=== PATIENT | female | born 1940 | race Caucasian/White ===

== ENCOUNTER 2018-11-08 09:07 | Emergency (ER) | payer MEDICARE, OTHER ==
[~2018-11-08] VITALS: Ht 167.6 cm; Wt 77.1 kg
[~2018-11-08 09:07] MED LIST: ATOR10TA52 PO; CITA-30 PO; ESTR2TAB3 PO; FLUT100M7 IN; GABA300C10 PO; INSU100I4 SC; LATA0.0020 EACHEYE; LOSA-49 PO; MULT-902 OR; NOR10T PO; SITA100T7 PO; TRIA50TA2 PO
[2018-11-08 10:32] VITALS: BP 140/52
[2018-11-08] MEDS ORDERED: ALBUTEROL SULF 2.5 MG/0.5ML(0.5%) NEB SOLN NEB ONE (11:00)
[2018-11-08] MEDS ORDERED: IPRATROPIUM BROM 0.5 MG/2.5ML INH SOL NEB ONE (11:00)
[2018-11-08] MEDS ORDERED: cefTRIAXone SOD 1,000 MG VL IM ONE (11:15)
[2018-11-08] MEDS ORDERED: LIDOCAINE 1% HCL (LOCAL ANESTH.) INJ 20ML MDV ONE (11:20)
[2018-11-08] MEDS ORDERED: LIDOCAINE 1% HCL (LOCAL ANESTH.) INJ 20ML MDV IJ ONE (11:30)
== END 2018-11-08 11:48 | disposition home or self-care (01) ==
LOC: ER 09:07
DX: H66.93 Otitis media, unspecified, bilateral (principal); J20.9 Acute bronchitis, unspecified; J02.9 Acute pharyngitis, unspecified; F17.210 Nicotine dependence, cigarettes, uncomplicated; E11.9 Type 2 diabetes mellitus without complications; E78.5 Hyperlipidemia, unspecified; I10 Essential (primary) hypertension; Z90.710 Acquired absence of both cervix and uterus
CPT/HCPCS: 71046; 94640; 96372; 99283; J0696; J2001; J7611; J7644

== ENCOUNTER 2019-05-14 09:09 | Emergency (ER) | payer MEDICARE, OTHER ==
[~2019-05-14] VITALS: Ht 165.1 cm; Wt 72.6 kg
[~2019-05-14 09:09] MED LIST changes: +LOSA-39 PO; -LOSA-49 PO
[2019-05-14 09:52] LABS: Basophils % (auto) 0.9 % (0.0-2.0); Eosinophils # (auto) 0.1 uL; Hematocrit 41.2 % (36.0-46.0); Hemoglobin 13.9 g/dL (12.2-16.2); Mean Corpuscular Volume 103.5 fL (80.0-100.0); Red Cell Distribution Width 12.8 % (11.8-14.3)
[2019-05-14 09:54] LABS: Basophils # (auto) 0 uL; Eosinophils % (auto) 2.5 % (0.0-7.0); Lymphocytes # (auto) 1.5 uL; Lymphocytes % (auto) 25.6 % (10.0-50.0); Mean Corpuscular Hgb Conc. 33.8 g/dL (32.0-36.0); Monocytes # (auto) 0.5 uL; Monocytes % (auto) 8.4 % (0.0-12.0); Neutrophils # (auto) 3.6 uL; Neutrophils % (auto) 62.6 % (37.0-80.0); Platelet Count (auto) 239 10^3/uL (140-450); Red Blood Cells 3.97 10^6/uL (4.0-5.20); White Blood Cell 5.7 10^3/uL (4.4-10.8)
[2019-05-14 10:16] LABS: Albumin 3.8 g/dL (3.4-5.0); Anion Gap 7 (5-15); Blood Urea Nitrogen 9 mg/dL (7-18); Calcium 8.7 mg/dL (8.5-10.1); Carbon Dioxide 27 mmol/L (21-32); Chloride 106 mmol/L (98-107); Glucose 138 mg/dL (74-106); Magnesium 1.9 mg/dL (1.6-2.6); Potassium 4.1 mmol/L (3.5-5.1); Sodium 140 mmol/L (136-145)
[2019-05-14 10:22] LABS: Alanine Aminotransferase 42 U/L (13-56); Alkaline Phosphatase 48 U/L (45-117); Aspartate Aminotransferase 34 U/L (15-37); BUN/Creatinine Ratio 12.5; Bilirubin, Total 0.6 mg/dL (0.2-1.0); GFR African American 101 mL/min; GFR Non-African American 84 mL/min
[2019-05-14 10:40] LABS: INR 1.03 (0.9-1.15); Partial Thromboplastin Time 25.4 sec (23.64-32.05)
[2019-05-14 11:03] LABS: Urine Bacteria FEW /hpf (None Seen); Urine Blood Negative /uL (Negative); Urine Specific Gravity 1.019 (1.001-1.035); Urine WBC 47 /hpf (0 - 5)
[2019-05-14] MEDS ORDERED: cefTRIAXone SOD 1,000 MG VL IM ONE (12:30)
[2019-05-14] MEDS ORDERED: MECLIZINE HCL 25 MG TAB PO ONE (12:30)
[2019-05-14] MEDS ORDERED: LIDOCAINE 2% (LOCAL ANESTH.) PF 5ml SDV ONE (13:10)
[2019-05-14 13:21] VITALS: BP 142/56
== END 2019-05-14 13:22 | disposition home or self-care (01) ==
LOC: ER 09:11
DX: R42 Dizziness and giddiness (principal); N39.0 Urinary tract infection, site not specified; M19.90 Unspecified osteoarthritis, unspecified site; I25.10 Atherosclerotic heart disease of native coronary artery without angina pectoris; E11.9 Type 2 diabetes mellitus without complications; E78.5 Hyperlipidemia, unspecified; I10 Essential (primary) hypertension; Z90.710 Acquired absence of both cervix and uterus; Z79.899 Other long term (current) drug therapy
CPT/HCPCS: 36415; 70450; 71045; 80053; 81001; 83735; 83880; 84484; 85025; 85610; 85730; 93005; 94761; 96372; 99284; J0696; J2001; J8597

== ENCOUNTER 2021-08-25 10:48 | Inpatient (IN) | payer MEDICARE, OTHER ==
[~2021-08-25] VITALS: Ht 167.6 cm; Wt 65.4 kg
[~2021-08-25 10:48] MED LIST changes: -CITA-30 PO; +CITA20TA9 PO
[2021-08-25] MEDS ORDERED: methylPREDNISolone SOD SUCC 125 MG/2 ML VL IV ONE (11:15)
[2021-08-25] MEDS ORDERED: ZINC SULFATE 220mg CAP or TAB PO ONE (11:30)
[2021-08-25] MEDS ORDERED: CHOLECALCIFEROL (VITD3) 2,000 UNIT CAP/TAB PO ONE (11:30)
[2021-08-25] MEDS ORDERED: ASCORBIC ACID 500 MG TAB PO ONE (11:30)
[2021-08-25] MEDS ORDERED: AZITHROMYCIN 500MG/ 250ML 250 ML IV ONE (11:30)
[2021-08-25 11:52] LABS: Basophils # (auto) 0.1 10 ^3/uL (0-0.2); Eosinophils # (auto) 0 10 ^3/uL (0-0.8); Hemoglobin 14.8 g/dL (12.2-16.2); Lymphocytes # (auto) 1.1 10 ^3/uL (0.4-5.4); Monocytes # (auto) 0.9 10 ^3/uL (0-1.3); White Blood Cell 9.1 10^3/uL (4.4-10.8)
[2021-08-25 11:56] LABS: Basophils % (auto) 0.9 % (0.0-2.0); Eosinophils % (auto) 0.5 % (0.0-7.0); Hematocrit 42.5 % (36.0-46.0); Mean Corpuscular Hemoglobin 34.9 pg (28.0-32.0); Mean Corpuscular Hgb Conc. 34.8 g/dL (32.0-36.0); Mean Corpuscular Volume 100.5 fL (80.0-100.0); Neutrophils # (auto) 6.9 10 ^3/uL (1.6-8.6); Neutrophils % (auto) 76.6 % (37.0-80.0); Nucleated Red Blood Cells % 0.1 %; Red Blood Cells 4.23 10^6/uL (4.0-5.20); Red Cell Distribution Width 12.4 % (11.8-14.3)
[2021-08-25] MEDS ORDERED: MORPHINE SULFATE 4 MG/ML SYR/VIAL IV ONE (12:00)
[2021-08-25] MEDS ORDERED: ONDANSETRON HCL 4 MG/2 ML VIAL IV ONE (12:00)
[2021-08-25 12:18] LABS: Albumin 3.2 g/dL (3.4-5.0); Calcium 11.2 mg/dL (8.5-10.1); Potassium 4.2 mmol/L (3.5-5.1)
[2021-08-25 12:28] LABS: BUN/Creatinine Ratio 18.2; Bilirubin, Total 1.3 mg/dL (0.2-1.0); CRP High Sensitivity 13.1 mg/dL (< 0.3); Total Protein 7.9 g/dL (6.4-8.2)
[2021-08-25 12:45] LABS: Lactic Acid w/Reflex 3.4 mmol/L (0.4-2.0)
[2021-08-25] MEDS ORDERED: MORPHINE SULFATE INJECTION 2 MG/ML SYRG IV PRN ×2 (14:00→16:45)
[2021-08-25] MEDS ORDERED: NITROGLYCERIN 0.4 MG SL TAB SL PRN ×2 (14:00→16:45)
[2021-08-25] MEDS ORDERED: ALBUTEROL SULF 2.5 MG/0.5ML(0.5%) NEB SOLN NEB ONE (16:00)
[2021-08-25] MEDS ORDERED: IPRATROPIUM BROM 0.5 MG/2.5ML INH SOL NEB ONE (16:00)
[2021-08-25] MEDS ORDERED: BUDESONIDE (INHALATION) 0.5 MG/2 ML NEB NEB ONE (16:00)
[2021-08-25] MEDS ORDERED: DEXTROSE (50%) 50ML SYRG IV PRN (16:00)
[2021-08-25] MEDS ORDERED: CLINDAMYCIN 600MG IV 50 ML IV ONE (16:00)
[2021-08-25] MEDS ORDERED: levoFLOXacin 500MG 100 ML IV ONE (16:00)
[2021-08-25] MEDS ORDERED: ENOXAPARIN SOD 80 MG/0.8ML SYRINGE SC ONE (16:00)
[2021-08-25] MEDS ORDERED: NIFEdipine ER 30 MG TAB PO ONE (16:45)
[2021-08-25] MEDS ORDERED: hydrALAZINE HCL 20 MG/ML VL IV PRN (16:45)
[2021-08-25] MEDS ORDERED: DOCUSATE SOD 100 MG CAP PO PRN (16:45)
[2021-08-25] MEDS ORDERED: ACETAMINOPHEN 325 MG TAB PO PRN (16:45)
[2021-08-25] MEDS ORDERED: ALUM & MAG HYDROX-SIMETH LIQ(MAALOX) 30 ML PO PRN (16:45)
[2021-08-25] MEDS ORDERED: HYDROcodone-ACET 5/325MG TAB PO PRN (16:45)
[2021-08-25] MEDS ORDERED: LORazepam 0.5 MG TAB PO PRN (16:45)
[2021-08-25 17:12] LABS: Urine Bacteria FEW /hpf (None Seen); Urine Blood Negative /uL (Negative); Urine Mucus FEW (None Seen); Urine WBC 9 /hpf (0 - 5)
[2021-08-25 17:25] LABS: Amphetamine Screen, Urine NEGATIVE (NEGATIVE); Barbiturate Scree,Urine NEGATIVE (NEGATIVE); Benzodiazephine Screen, Urine NEGATIVE (NEGATIVE); Cannabinoid Screen, Urine NEGATIVE (NEGATIVE); Cocaine Screen, Urine NEGATIVE (NEGATIVE); Opiate Scree,Urine POSITIVE (NEGATIVE); Phencyclidine Screen, Urine NEGATIVE (NEGATIVE)
[2021-08-25] MEDS ORDERED: LATANOPROST 0.005 % OPTH(EYE) SOL 2.5ML EACHEYE SCH (18:00)
[2021-08-25 18:12] LABS: Magnesium 1.7 mg/dL (1.6-2.6); Phosphorus 4.2 mg/dL (2.5-4.90)
[2021-08-25] MEDS: ALBUTEROL SULF 2.5 MG/0.5ML(0.5%) NEB SOLN NEB PRN ×2 (19:21→22:32)
[2021-08-25] MEDS: BUDESONIDE (INHALATION) 0.5 MG/2 ML NEB NEB SCH (19:21)
[2021-08-25] MEDS: IPRATROPIUM BROM 0.5 MG/2.5ML INH SOL NEB SCH ×3 (19:21→22:32)
[2021-08-25 19:48] LABS: Folate (Folic Acid) > 24.00 ng/mL (5.38-24)
[2021-08-25] MEDS: MORPHINE SULFATE INJECTION 2 MG/ML SYRG IV PRN (21:22)
[2021-08-25] MEDS: METOCLOPRAMIDE HCL 5MG/ml INJ 2ml VIAL IV PRN (21:22)
[2021-08-25] MEDS: ACCU-CHEK COMFORT CURVE STRIP VI SCH (21:32)
[2021-08-25] MEDS: InsuLIN REG 1unit/0.01ml Soln (100units/ml) SC SCH (21:41)
[2021-08-25] MEDS: LATANOPROST 0.005 % OPTH(EYE) SOL 2.5ML EACHEYE SCH ×2 (22:00→23:58)
[2021-08-25] MEDS: SODIUM CHLORIDE 0.9% 1,000 ML IV SCH (22:28)
[2021-08-25] MEDS: ATORVASTATIN 20 MG TAB PO SCH (22:28)
[2021-08-25] MEDS: GABAPENTIN 300 MG CAP PO SCH (22:28)
[2021-08-25] MEDS: CITALOPRAM HYDROBR 20 MG TAB PO SCH (22:28)
[2021-08-25] MEDS: MULTIPLE VITAMINS W/ MINERALS TAB PO SCH (22:28)
[2021-08-25] MEDS: methylPREDNISolone SOD SUCC 40 MG/ML VL IV SCH (22:33)
[2021-08-25] MEDS: ENOXAPARIN SOD 40 MG/0.4 ML SYRINGE SC SCH (22:35)
[2021-08-25] MEDS: CLINDAMYCIN 600MG IV 50 ML IV SCH (22:38)
[2021-08-26] MEDS: InsuLIN REG 1unit/0.01ml Soln (100units/ml) SC SCH ×4 (00:24→17:42)
[2021-08-26] MEDS: ACCU-CHEK COMFORT CURVE STRIP VI SCH ×4 (00:33→17:40)
[2021-08-26] MEDS: CLINDAMYCIN 600MG IV 50 ML IV SCH ×3 (02:28→17:44)
[2021-08-26] MEDS: IPRATROPIUM BROM 0.5 MG/2.5ML INH SOL NEB SCH ×6 (02:46→22:03)
[2021-08-26] MEDS: ALBUTEROL SULF 2.5 MG/0.5ML(0.5%) NEB SOLN NEB PRN ×3 (02:46→22:04)
[2021-08-26] MEDS: GABAPENTIN 300 MG CAP PO SCH ×3 (05:16→21:42)
[2021-08-26] MEDS: methylPREDNISolone SOD SUCC 40 MG/ML VL IV SCH ×3 (06:11→21:42)
[2021-08-26] MEDS: BUDESONIDE (INHALATION) 0.5 MG/2 ML NEB NEB SCH ×2 (06:49→18:51)
[2021-08-26 07:32] LABS: Basophils # (auto) 0 10 ^3/uL (0-0.2); Basophils % (auto) 0.5 % (0.0-2.0); Eosinophils # (auto) 0 10 ^3/uL (0-0.8); Hematocrit 39.7 % (36.0-46.0); Hemoglobin 13.7 g/dL (12.2-16.2); Lymphocytes # (auto) 0.7 10 ^3/uL (0.4-5.4); Lymphocytes % (auto) 7.2 % (10.0-50.0); Mean Corpuscular Hemoglobin 34.6 pg (28.0-32.0); Mean Corpuscular Hgb Conc. 34.5 g/dL (32.0-36.0); Mean Corpuscular Volume 100.3 fL (80.0-100.0); Monocytes # (auto) 0.7 10 ^3/uL (0-1.3); Monocytes % (auto) 6.8 % (0.0-12.0); Neutrophils # (auto) 8.8 10 ^3/uL (1.6-8.6); Neutrophils % (auto) 85.5 % (37.0-80.0); Red Blood Cells 3.96 10^6/uL (4.0-5.20); Red Cell Distribution Width 12.4 % (11.8-14.3); White Blood Cell 10.2 10^3/uL (4.4-10.8)
[2021-08-26 07:34] LABS: Albumin 3.3 g/dL (3.4-5.0); Calcium 10.9 mg/dL (8.5-10.1); Magnesium 2.7 mg/dL (1.6-2.6); Potassium 4.4 mmol/L (3.5-5.1)
[2021-08-26 07:41] LABS: Bilirubin, Total 1.1 mg/dL (0.2-1.0); INR 1.34 (0.9-1.15); Partial Thromboplastin Time 29.1 sec (23.6-33.0); Phosphorus 4.2 mg/dL (2.5-4.90); Total Protein 7.7 g/dL (6.4-8.2); Uric Acid 7.7 mg/dL (2.6-6.0)
[2021-08-26] MEDS: MORPHINE SULFATE INJECTION 2 MG/ML SYRG IV PRN ×2 (08:01→14:23)
[2021-08-26] MEDS: METOCLOPRAMIDE HCL 5MG/ml INJ 2ml VIAL IV PRN ×2 (08:01→14:33)
[2021-08-26] MEDS ORDERED: INSLANTI SC (11:18)
[2021-08-26] MEDS ORDERED: ESTR1TAB6 PO (11:18)
[2021-08-26] MEDS ORDERED: ROPI3TAB4 PO (11:18)
[2021-08-26] MEDS ORDERED: AMLO-489 PO (11:18)
[2021-08-26] MEDS ORDERED: ALBU108A14 IN (11:18)
[2021-08-26] MEDS ORDERED: ATOR20TA50 PO (11:18)
[2021-08-26] MEDS ORDERED: INSU100I4 SC (11:18)
[2021-08-26] MEDS ORDERED: HYDR-3682 PO (11:18)
[2021-08-26] MEDS ORDERED: HYDR25TA5 PO (11:18)
[2021-08-26] MEDS: SODIUM CHLORIDE 0.9% 1,000 ML IV SCH (11:44)
[2021-08-26] MEDS: ASPirin 81 mg TAB PO SCH (11:46)
[2021-08-26] MEDS: MULTIPLE VITAMINS W/ MINERALS TAB PO SCH ×2 (11:46→21:41)
[2021-08-26] MEDS: ENOXAPARIN SOD 40 MG/0.4 ML SYRINGE SC SCH ×2 (11:46→21:42)
[2021-08-26] MEDS: LOSARTAN POTASSIUM 50 MG TAB PO SCH (11:48)
[2021-08-26] MEDS: NIFEdipine ER 30 MG TAB PO SCH (11:48)
[2021-08-26] MEDS: levoFLOXacin 500MG 100 ML IV SCH (13:41)
[2021-08-26 18:14] VITALS: BP 127/68
[2021-08-26] MEDS: ATORVASTATIN 20 MG TAB PO SCH (21:41)
[2021-08-26] MEDS: CITALOPRAM HYDROBR 20 MG TAB PO SCH (21:42)
[2021-08-26] MEDS: LATANOPROST 0.005 % OPTH(EYE) SOL 2.5ML EACHEYE SCH (21:47)
[2021-08-26 22:00] VITALS: BP 122/59
[2021-08-27] MEDS: ACCU-CHEK COMFORT CURVE STRIP VI SCH ×5 (00:15→23:54)
[2021-08-27] MEDS: InsuLIN REG 1unit/0.01ml Soln (100units/ml) SC SCH ×4 (00:17→18:24)
[2021-08-27] MEDS: IPRATROPIUM BROM 0.5 MG/2.5ML INH SOL NEB SCH ×6 (02:00→22:00)
[2021-08-27] MEDS: CLINDAMYCIN 600MG IV 50 ML IV SCH ×3 (02:00→18:23)
[2021-08-27 05:00] VITALS: BP 102/41
[2021-08-27] MEDS: methylPREDNISolone SOD SUCC 40 MG/ML VL IV SCH ×3 (06:26→22:33)
[2021-08-27] MEDS: GABAPENTIN 300 MG CAP PO SCH ×3 (06:26→22:32)
[2021-08-27] MEDS: METOCLOPRAMIDE HCL 5MG/ml INJ 2ml VIAL IV PRN ×2 (08:20→16:04)
[2021-08-27 09:00] VITALS: BP 102/59
[2021-08-27] MEDS: MULTIPLE VITAMINS W/ MINERALS TAB PO SCH ×2 (09:17→22:32)
[2021-08-27] MEDS: ASPirin 81 mg TAB PO SCH (09:17)
[2021-08-27] MEDS: ENOXAPARIN SOD 40 MG/0.4 ML SYRINGE SC SCH ×2 (09:17→22:00)
[2021-08-27] MEDS: NIFEdipine ER 30 MG TAB PO SCH (09:19)
[2021-08-27] MEDS: LOSARTAN POTASSIUM 50 MG TAB PO SCH (09:26)
[2021-08-27] MEDS: BUDESONIDE (INHALATION) 0.5 MG/2 ML NEB NEB SCH ×2 (10:25→18:45)
[2021-08-27] MEDS: levoFLOXacin 500MG 100 ML IV SCH (11:40)
[2021-08-27 13:00] VITALS: BP 111/67
[2021-08-27] MEDS: MORPHINE SULFATE INJECTION 2 MG/ML SYRG IV PRN ×2 (14:42→21:18)
[2021-08-27 17:00] VITALS: BP 127/75
[2021-08-27] MEDS: ALBUTEROL SULF 2.5 MG/0.5ML(0.5%) NEB SOLN NEB PRN (18:45)
[2021-08-27 22:00] VITALS: BP 131/66
[2021-08-27] MEDS: ATORVASTATIN 20 MG TAB PO SCH (22:31)
[2021-08-27] MEDS: CITALOPRAM HYDROBR 20 MG TAB PO SCH (22:31)
[2021-08-27] MEDS: LATANOPROST 0.005 % OPTH(EYE) SOL 2.5ML EACHEYE SCH (22:35)
[2021-08-28] MEDS: InsuLIN REG 1unit/0.01ml Soln (100units/ml) SC SCH ×4 (00:02→18:32)
[2021-08-28] MEDS: METOCLOPRAMIDE HCL 5MG/ml INJ 2ml VIAL IV PRN (00:20)
[2021-08-28] MEDS: CLINDAMYCIN 600MG IV 50 ML IV SCH ×3 (01:35→18:22)
[2021-08-28] MEDS: IPRATROPIUM BROM 0.5 MG/2.5ML INH SOL NEB SCH ×4 (02:00→14:31)
[2021-08-28 05:12] VITALS: BP 117/54
[2021-08-28] MEDS: methylPREDNISolone SOD SUCC 40 MG/ML VL IV SCH ×2 (05:45→14:53)
[2021-08-28] MEDS: GABAPENTIN 300 MG CAP PO SCH ×2 (05:45→14:00)
[2021-08-28] MEDS: MORPHINE SULFATE INJECTION 2 MG/ML SYRG IV PRN ×2 (05:47→10:19)
[2021-08-28] MEDS: ACCU-CHEK COMFORT CURVE STRIP VI SCH ×3 (05:52→18:31)
[2021-08-28] MEDS: BUDESONIDE (INHALATION) 0.5 MG/2 ML NEB NEB SCH (07:59)
[2021-08-28 09:00] VITALS: BP 123/57
[2021-08-28] MEDS: ENOXAPARIN SOD 40 MG/0.4 ML SYRINGE SC SCH (09:43)
[2021-08-28] MEDS: MULTIPLE VITAMINS W/ MINERALS TAB PO SCH (10:00)
[2021-08-28] MEDS: LOSARTAN POTASSIUM 50 MG TAB PO SCH (10:00)
[2021-08-28] MEDS: NIFEdipine ER 30 MG TAB PO SCH (10:00)
[2021-08-28] MEDS: ASPirin 81 mg TAB PO SCH (10:00)
[2021-08-28] MEDS ORDERED: DOXY100C2 PO (10:34)
[2021-08-28] MEDS: levoFLOXacin 500MG 100 ML IV SCH (11:20)
[2021-08-28] MEDS ORDERED: MIDAZOLAM HCL 2MG/2ML 2ml VIAL (1mg/ml) ONE (16:11)
[2021-08-28] MEDS ORDERED: fentaNYL CITRATE 100 MCG/2 ML VL ONE (16:12)
[2021-08-28] MEDS ORDERED: GELATIN 1 SPONGE SIZE 100 TOP ONE (16:38)
[2021-08-28] MEDS ORDERED: ACET-1156 PO ×2 (17:47→17:48)
[2021-08-28 18:34] VITALS: BP 132/86
== END 2021-08-28 17:20 | disposition home or self-care (01) | DRG 193 ==
LOC: ER 10:48 → TELE 13:59 → TELE-WESTW 08-26 09:49 → TELE-CENTR 08-27 11:00
PROVIDERS: ADMIT Hospitalist; ATTEND Internal Medicine
PROC: 0FB03ZX Excision of Liver, Percutaneous Approach, Diagnostic (ICD-10-PCS; principal; 2021-08-28)
DX: J18.9 Pneumonia, unspecified organism (principal); J96.20 Acute and chronic respiratory failure, unspecified whether with hypoxia or hypercapnia; J44.1 Chronic obstructive pulmonary disease with (acute) exacerbation; J44.0 Chronic obstructive pulmonary disease with (acute) lower respiratory infection; D75.89 Other specified diseases of blood and blood-forming organs; E78.5 Hyperlipidemia, unspecified; F17.210 Nicotine dependence, cigarettes, uncomplicated; I10 Essential (primary) hypertension; E11.9 Type 2 diabetes mellitus without complications; I25.10 Atherosclerotic heart disease of native coronary artery without angina pectoris; Z20.822 Contact with and (suspected) exposure to COVID-19; Z79.84 Long term (current) use of oral hypoglycemic drugs; Z79.899 Other long term (current) drug therapy; Z80.1 Family history of malignant neoplasm of trachea, bronchus and lung; Z80.49 Family history of malignant neoplasm of other genital organs; Z82.49 Family history of ischemic heart disease and other diseases of the circulatory system; Z83.3 Family history of diabetes mellitus; Z90.710 Acquired absence of both cervix and uterus; Z92.21 Personal history of antineoplastic chemotherapy; Z92.3 Personal history of irradiation; Z85.118 Personal history of other malignant neoplasm of bronchus and lung
CPT/HCPCS: 36415; 36600; 71045; 71046; 71275; 76705; 76942; 80053; 80307; 81001; 82607; 82728; 82746; 82805; 82962; 83036; 83605; 83735; 83880; 83970; 84100; 84443; 84484; 84550; 85025; 85379; 85610; 85730; 86141; 87040; 87086; 87426; 93005; 93970; 94640; 96365; 96366; 96375; 99291; G0378; J1815; J1956; J2250; J2405; J3490

== ENCOUNTER 2021-09-05 13:39 | Inpatient (IN) | payer MEDICARE, OTHER ==
[~2021-09-05] VITALS: Ht 167.6 cm; Wt 66.6 kg
[~2021-09-05 13:39] MED LIST changes: +ACET-1156 PO; +ALBU108A14 IN; +AMLO-489 PO; -ATOR10TA52 PO; +ATOR20TA50 PO; -CITA20TA9 PO; +DOXY100C2 PO; +ESTR1TAB6 PO; -ESTR2TAB3 PO; -FLUT100M7 IN; +HYDR-3682 PO; +HYDR25TA5 PO; +INSLANTI SC; -LOSA-39 PO; -NOR10T PO; +ROPI3TAB4 PO; -SITA100T7 PO; -TRIA50TA2 PO
[2021-09-05 21:41] LABS: Mean Corpuscular Hemoglobin 34.4 pg (28.0-32.0)
[2021-09-05 21:42] LABS: Basophils # (auto) 0 10 ^3/uL (0-0.2); Basophils % (auto) 0.4 % (0.0-2.0); Eosinophils # (auto) 0 10 ^3/uL (0-0.8); Eosinophils % (auto) 0.1 % (0.0-7.0); Hematocrit 39.7 % (36.0-46.0); Hemoglobin 13.4 g/dL (12.2-16.2); Lymphocytes % (auto) 7.8 % (10.0-50.0); Mean Corpuscular Hgb Conc. 33.7 g/dL (32.0-36.0); Mean Corpuscular Volume 102.1 fL (80.0-100.0); Monocytes # (auto) 0.9 10 ^3/uL (0-1.3); Monocytes % (auto) 6.5 % (0.0-12.0); Neutrophils # (auto) 11.4 10 ^3/uL (1.6-8.6); Neutrophils % (auto) 85.2 % (37.0-80.0); Nucleated Red Blood Cells % 0.2 %; Red Blood Cells 3.89 10^6/uL (4.0-5.20); Red Cell Distribution Width 14.1 % (11.8-14.3); White Blood Cell 13.4 10^3/uL (4.4-10.8)
[2021-09-05 21:55] LABS: Albumin 2.3 g/dL (3.4-5.0); Calcium 11.2 mg/dL (8.5-10.1); Magnesium 3.1 mg/dL (1.6-2.6); Potassium 4.1 mmol/L (3.5-5.1)
[2021-09-05 22:00] LABS: Bilirubin, Total 5.2 mg/dL (0.2-1.0)
[2021-09-05] MEDS ORDERED: IOHEXOL 350 MG/ML 100ML IJ ONE (22:00)
[2021-09-05 22:01] LABS: Urine WBC None Seen /hpf (0 - 5)
[2021-09-05 22:11] LABS: Urine Bacteria NONE SEEN /hpf (None Seen); Urine Blood Negative /uL (Negative); Urine Hyaline Cast MOD /lpf (0 - 2); Urine Mucus FEW (None Seen); Urine Specific Gravity 1.022 (1.001-1.035)
[2021-09-06] MEDS ORDERED: MORPHINE SULFATE INJECTION 2 MG/ML SYRG IV ONE (03:30)
[2021-09-06] MEDS ORDERED: DEXTROSE (50%) 50ML SYRG IV PRN (03:45)
[2021-09-06] MEDS ORDERED: ACETAMINOPHEN 325 MG TAB PO PRN (03:45)
[2021-09-06] MEDS ORDERED: DOCUSATE SOD 100 MG CAP PO PRN (03:45)
[2021-09-06] MEDS ORDERED: cefTRIAXone 1GM/50ML D5W 50 ML IV ONE (03:45)
[2021-09-06] MEDS: InsuLIN REG 1unit/0.01ml Soln (100units/ml) SC SCH ×6 (04:00→23:28)
[2021-09-06] MEDS: SODIUM CHLORIDE 0.9% 1,000 ML IV SCH (04:01)
[2021-09-06] MEDS: ACCU-CHEK COMFORT CURVE STRIP VI SCH ×6 (04:09→23:28)
[2021-09-06] MEDS ORDERED: NITROGLYCERIN 0.4 MG SL TAB SL PRN (06:15)
[2021-09-06 09:05] LABS: Basophils # (auto) 0 10 ^3/uL (0-0.2); Eosinophils # (auto) 0 10 ^3/uL (0-0.8); Eosinophils % (auto) 0.1 % (0.0-7.0); Hemoglobin 12.9 g/dL (12.2-16.2); Monocytes % (auto) 7.7 % (0.0-12.0); Red Blood Cells 3.74 10^6/uL (4.0-5.20)
[2021-09-06 09:09] LABS: Basophils % (auto) 0.4 % (0.0-2.0); Hematocrit 37.7 % (36.0-46.0); Lymphocytes # (auto) 1.1 10 ^3/uL (0.4-5.4); Lymphocytes % (auto) 8.4 % (10.0-50.0); Mean Corpuscular Hemoglobin 34.4 pg (28.0-32.0); Mean Corpuscular Hgb Conc. 34.1 g/dL (32.0-36.0); Mean Corpuscular Volume 100.7 fL (80.0-100.0); Neutrophils # (auto) 11.2 10 ^3/uL (1.6-8.6); Neutrophils % (auto) 83.4 % (37.0-80.0); Nucleated Red Blood Cells % 0.2 %; White Blood Cell 13.4 10^3/uL (4.4-10.8)
[2021-09-06] MEDS: HYDROcodone-ACET 5/325MG TAB PO PRN ×2 (09:13→23:26)
[2021-09-06 09:20] LABS: Albumin 2.4 g/dL (3.4-5.0); BUN/Creatinine Ratio 34.5; Calcium 12.3 mg/dL (8.5-10.1); Potassium 4.2 mmol/L (3.5-5.1)
[2021-09-06 09:22] LABS: Total Protein 6.1 g/dL (6.4-8.2)
[2021-09-06] MEDS ORDERED: ASCORBIC ACID 500 MG TAB PO SCH (10:00)
[2021-09-06] MEDS ORDERED: ZINC SULFATE 220mg CAP or TAB PO SCH (10:00)
[2021-09-06] MEDS: FAMOTIDINE (10MG/ML) 2ML VL IV SCH (10:25)
[2021-09-06] MEDS: ENOXAPARIN SOD 40 MG/0.4 ML SYRINGE SC SCH (10:26)
[2021-09-06] MEDS: MULTIPLE VITAMIN TAB PO SCH (10:26)
[2021-09-06] MEDS: MORPHINE SULFATE 4 MG/ML SYR/VIAL IV PRN (12:23)
[2021-09-06] MEDS ORDERED: PAMIDRONATE DISODIUM 90 MG in SOD CHL 0.45% 1,000 ML IV ONE (13:30)
[2021-09-06] MEDS ORDERED: OMNIPAQUE ORAL SOLN 500ml 12mg/ml PO ONE (15:02)
[2021-09-06] MEDS ORDERED: IOHEXOL 300 MG/ML 100ML BOTTLE IJ ONE (15:02)
[2021-09-06 16:00] VITALS: BP 110/59
[2021-09-06 22:00] VITALS: BP 105/39
[2021-09-07] MEDS: SODIUM CHLORIDE 0.9% 1,000 ML IV SCH ×4 (03:24→18:03)
[2021-09-07] MEDS: ACCU-CHEK COMFORT CURVE STRIP VI SCH ×5 (03:56→20:20)
[2021-09-07] MEDS: cefTRIAXone 1GM/50ML D5W 50 ML IV SCH (03:56)
[2021-09-07] MEDS: InsuLIN REG 1unit/0.01ml Soln (100units/ml) SC SCH ×5 (03:57→20:22)
[2021-09-07] MEDS: MORPHINE SULFATE 4 MG/ML SYR/VIAL IV PRN ×2 (03:59→09:34)
[2021-09-07 05:00] VITALS: BP 103/54
[2021-09-07 07:55] LABS: Basophils # (auto) 0 10 ^3/uL (0-0.2); Basophils % (auto) 0.1 % (0.0-2.0); Eosinophils # (auto) 0 10 ^3/uL (0-0.8); Eosinophils % (auto) 0.2 % (0.0-7.0); Hematocrit 36.7 % (36.0-46.0); Hemoglobin 12.4 g/dL (12.2-16.2); Lymphocytes # (auto) 1.4 10 ^3/uL (0.4-5.4); Lymphocytes % (auto) 10.2 % (10.0-50.0); Mean Corpuscular Hemoglobin 34.2 pg (28.0-32.0); Mean Corpuscular Hgb Conc. 33.8 g/dL (32.0-36.0); Mean Corpuscular Volume 101.4 fL (80.0-100.0); Monocytes % (auto) 7.2 % (0.0-12.0); Neutrophils # (auto) 11.4 10 ^3/uL (1.6-8.6); Neutrophils % (auto) 82.3 % (37.0-80.0); Nucleated Red Blood Cells % 0.2 %; Red Blood Cells 3.62 10^6/uL (4.0-5.20); Red Cell Distribution Width 13.8 % (11.8-14.3); White Blood Cell 13.8 10^3/uL (4.4-10.8)
[2021-09-07 08:48] LABS: Albumin 2.5 g/dL (3.4-5.0); BUN/Creatinine Ratio 48.1; Bilirubin, Total 5.9 mg/dL (0.2-1.0); Calcium 12.1 mg/dL (8.5-10.1); Total Protein 5.4 g/dL (6.4-8.2)
[2021-09-07 09:00] VITALS: BP 119/51
[2021-09-07] MEDS: ONDANSETRON HCL 4 MG/2 ML VIAL IV PRN ×2 (09:24→17:24)
[2021-09-07] MEDS: FAMOTIDINE (10MG/ML) 2ML VL IV SCH (09:35)
[2021-09-07] MEDS: ENOXAPARIN SOD 40 MG/0.4 ML SYRINGE SC SCH (09:41)
[2021-09-07] MEDS: MULTIPLE VITAMIN TAB PO SCH (09:44)
[2021-09-07] MEDS ORDERED: PAMIDRONATE DISODIUM 90 MG in SOD CHL 0.45% 1,000 ML IV ONE ×2 (10:30→20:30)
[2021-09-07 11:42] LABS: INR 2.53 (0.9-1.15); Partial Thromboplastin Time 56.4 sec (23.6-33.0)
[2021-09-07] MEDS ORDERED: IOHEXOL 300 MG/ML 100ML BOTTLE IJ ONE (12:17)
[2021-09-07 13:00] VITALS: BP 107/53
[2021-09-07] MEDS: DexAMETHasone SOD PHOS 4 MG/1ML SDV INJ IV SCH ×2 (14:44→22:06)
[2021-09-07] MEDS ORDERED: MORPHINE SULFATE INJECTION 2 MG/ML SYRG IV PRN (15:15)
[2021-09-07 17:00] VITALS: BP 107/56
[2021-09-07] MEDS: MORPHINE SULFATE INJECTION 2 MG/ML SYRG IV PRN (17:43)
[2021-09-07 20:30] VITALS: BP 101/44
[2021-09-08] MEDS: ACCU-CHEK COMFORT CURVE STRIP VI SCH ×6 (00:03→20:00)
[2021-09-08] MEDS: cefTRIAXone 1GM/50ML D5W 50 ML IV SCH (03:49)
[2021-09-08] MEDS: HYDROcodone-ACET 5/325MG TAB PO PRN (03:50)
[2021-09-08] MEDS: InsuLIN REG 1unit/0.01ml Soln (100units/ml) SC SCH ×6 (04:10→20:45)
[2021-09-08] MEDS: DexAMETHasone SOD PHOS 4 MG/1ML SDV INJ IV SCH (06:27)
[2021-09-08 09:00] VITALS: BP 103/47
[2021-09-08] MEDS: SODIUM CHLORIDE 0.9% 1,000 ML IV SCH (09:15)
[2021-09-08] MEDS ORDERED: DexAMETHasone SOD PHOS 10MG/1ML VIAL INJ IV ONE (09:15)
[2021-09-08] MEDS ORDERED: FUROSEMIDE 20 MG/2 ML VIAL IV ONE (09:30)
[2021-09-08 09:36] LABS: BUN/Creatinine Ratio 44.7; Potassium 4.2 mmol/L (3.5-5.1)
[2021-09-08 09:37] LABS: Albumin 2.3 g/dL (3.4-5.0); Bilirubin, Total 5.6 mg/dL (0.2-1.0); Calcium 10.6 mg/dL (8.5-10.1); Total Protein 5.2 g/dL (6.4-8.2)
[2021-09-08] MEDS: MULTIPLE VITAMIN TAB PO SCH (10:00)
[2021-09-08] MEDS: LORazepam 2MG/ML-1ML VIAL IV PRN ×2 (10:45→18:49)
[2021-09-08] MEDS: ONDANSETRON HCL 4 MG/2 ML VIAL IV PRN (10:46)
[2021-09-08] MEDS: ENOXAPARIN SOD 40 MG/0.4 ML SYRINGE SC SCH (10:47)
[2021-09-08] MEDS: FAMOTIDINE (10MG/ML) 2ML VL IV SCH (10:48)
[2021-09-08] MEDS: MORPHINE SULFATE INJECTION 2 MG/ML SYRG IV PRN (10:53)
[2021-09-08] MEDS: ONDANSETRON HCL 4 MG/2 ML VIAL IV SCH ×2 (12:00→17:41)
[2021-09-08 13:00] VITALS: BP 109/49
[2021-09-08] MEDS ORDERED: oxyCODONE HCL 5MG TAB PO ONE (14:15)
[2021-09-08] MEDS ORDERED: ETOPOSIDE IV SCH (15:00)
[2021-09-08] MEDS ORDERED: SODIUM CHL 0.9% IV SCH (15:00)
[2021-09-08] MEDS ORDERED: D5W 5% IV ONE (16:00)
[2021-09-08] MEDS ORDERED: CARBOPLATIN IV ONE (16:00)
[2021-09-08] MEDS ORDERED: ACETAMINOPHEN 650 MG RECT SUPP PR PRN ×2 (16:45)
[2021-09-08 17:00] VITALS: BP 117/37
[2021-09-08] MEDS ORDERED: HALOPERIDOL LACTATE 5 MG/ML INJ VIAL IM ONE (19:00)
[2021-09-08 22:00] VITALS: BP 126/56
[2021-09-09] MEDS: ONDANSETRON HCL 4 MG/2 ML VIAL IV SCH
[2021-09-09] MEDS: InsuLIN REG 1unit/0.01ml Soln (100units/ml) SC SCH ×4 (00:09→12:00)
[2021-09-09] MEDS: SODIUM CHLORIDE 0.9% 1,000 ML IV SCH (01:55)
[2021-09-09] MEDS: ACCU-CHEK COMFORT CURVE STRIP VI SCH ×4 (03:47→12:00)
[2021-09-09] MEDS: cefTRIAXone 1GM/50ML D5W 50 ML IV SCH (03:47)
[2021-09-09 05:00] VITALS: BP 111/60
[2021-09-09 06:19] LABS: Basophils # (auto) 0 10 ^3/uL (0-0.2); Basophils % (auto) 0.2 % (0.0-2.0); Eosinophils # (auto) 0 10 ^3/uL (0-0.8); Lymphocytes # (auto) 0.9 10 ^3/uL (0.4-5.4); Neutrophils # (auto) 18.4 10 ^3/uL (1.6-8.6); Red Blood Cells 3.42 10^6/uL (4.0-5.20); White Blood Cell 20.8 10^3/uL (4.4-10.8)
[2021-09-09 06:23] LABS: Hematocrit 35.1 % (36.0-46.0); Hemoglobin 11.8 g/dL (12.2-16.2); Lymphocytes % (auto) 4.3 % (10.0-50.0); Mean Corpuscular Hemoglobin 34.5 pg (28.0-32.0); Mean Corpuscular Hgb Conc. 33.5 g/dL (32.0-36.0); Mean Corpuscular Volume 102.7 fL (80.0-100.0); Monocytes # (auto) 1.4 10 ^3/uL (0-1.3); Monocytes % (auto) 6.7 % (0.0-12.0); Neutrophils % (auto) 88.8 % (37.0-80.0); Nucleated Red Blood Cells % 0.4 %; Red Cell Distribution Width 14.6 % (11.8-14.3)
[2021-09-09 06:34] LABS: Potassium 4.6 mmol/L (3.5-5.1)
[2021-09-09 06:42] LABS: Albumin 2.4 g/dL (3.4-5.0)
[2021-09-09 06:44] LABS: Bilirubin, Total 6.6 mg/dL (0.2-1.0); Total Protein 5.7 g/dL (6.4-8.2)
[2021-09-09 09:00] VITALS: BP 119/46
[2021-09-09] MEDS: MULTIPLE VITAMIN TAB PO SCH (09:41)
[2021-09-09] MEDS: FAMOTIDINE (10MG/ML) 2ML VL IV SCH (10:00)
[2021-09-09] MEDS: ENOXAPARIN SOD 40 MG/0.4 ML SYRINGE SC SCH (10:00)
[2021-09-09] MEDS ORDERED: ONDANSETRON HCL 4 MG/2 ML VIAL IV SCH (12:00)
[2021-09-09 12:37] VITALS: BP 103/56
[2021-09-09] MEDS ORDERED: SODIUM CHLORIDE 0.9% 1,000 ML IV SCH (13:30)
[2021-09-09] MEDS ORDERED: ALBUMIN 25% 100 ML IV SCH (14:00)
[2021-09-10 10:07] LABS: Hepatitis B Surface Antibody Negative (Negative)
[2021-09-10 10:27] LABS: Hepatitis A Total Antibody Positive (Negative)
[2021-09-10 11:20] LABS: Hepatitis C Antibody Negative (Negative)
== END 2021-09-09 17:00 | disposition hospice, home (50) | DRG 180 ==
LOC: ER 13:39 → EDBD 13:39 → TELE 09-06 06:05 → TELE-CENTR 09-06 16:10
PROVIDERS: ADMIT Nurse Practitioner Family; ATTEND Internal Medicine
DX: C34.11 Malignant neoplasm of upper lobe, right bronchus or lung (principal); G93.41 Metabolic encephalopathy; J96.00 Acute respiratory failure, unspecified whether with hypoxia or hypercapnia; C79.51 Secondary malignant neoplasm of bone; C78.7 Secondary malignant neoplasm of liver and intrahepatic bile duct; R62.7 Adult failure to thrive; E83.52 Hypercalcemia; E11.9 Type 2 diabetes mellitus without complications; J44.9 Chronic obstructive pulmonary disease, unspecified; F41.9 Anxiety disorder, unspecified; E78.5 Hyperlipidemia, unspecified; F17.210 Nicotine dependence, cigarettes, uncomplicated; R79.89 Other specified abnormal findings of blood chemistry; M19.90 Unspecified osteoarthritis, unspecified site; Z66 Do not resuscitate; I10 Essential (primary) hypertension; I25.10 Atherosclerotic heart disease of native coronary artery without angina pectoris; Z80.1 Family history of malignant neoplasm of trachea, bronchus and lung; Z80.49 Family history of malignant neoplasm of other genital organs; Z82.49 Family history of ischemic heart disease and other diseases of the circulatory system; Z83.3 Family history of diabetes mellitus; Z85.118 Personal history of other malignant neoplasm of bronchus and lung; Z86.011 Personal history of benign neoplasm of the brain; Z90.710 Acquired absence of both cervix and uterus; Z92.3 Personal history of irradiation
CPT/HCPCS: 36415; 70450; 71045; 71275; 74177; 76705; 80053; 81001; 82105; 82140; 82962; 83735; 83880; 84484; 85025; 85610; 85730; 86704; 86706; 86708; 86803; 87081; 87340; 87426; 93005; 96365; 96372; 96375; G0378; J0696; J1100; J1815; J2405; J3490; J7060; J9045; P9047